=== PATIENT | female | born 1965 | race Caucasian/White ===

== ENCOUNTER → 2018-05-29 | Day surgery (SDC) | payer OTHER ==
[~2018-05-29] MED LIST: FENTANYL CITRATE/PF 100MCG/2 ML INJ ONE; GLUCAGON FOR INJ 1 MG VIAL ONE; HYOSCYAMINE SULFATE 0.5 MG/ML INJ ONE; LOESTRIN1 EAC1 PO; MIDAZOLAM HCL 2 MG/2 ML VIAL ONE; PROPOFOL IV EMULSION 10 MG/ML 50 ML VIAL ONE; WOMEN'S DAILY1 EAC2 PO
[2018-05-29 13:40] VITALS: BP 118/78
--- NOTE | 2018-05-29 14:49 | Operative Report ---
DATE OF PROCEDURE: May 29, 2018 REFERRING PHYSICIAN: Dr. Kodi Ramirez. PROCEDURE PERFORMED: Colonoscopy and polypectomy. INDICATIONS FOR COLONOSCOPY: Colorectal cancer screening. MEDICATION: Patient was done under MAC. Please see anesthesiologist's note. PROCEDURE: With the patient in the lateral decubitus position, flexible fiberoptic Olympus colonoscope was inserted into the rectum with ease and advanced all the way to the cecum. One polyp was hot biopsied from the cecum. The ascending, transverse and descending appeared to be within normal limits. One polyp was snared from the sigmoid colon. One polyp was hot biopsied from the rectum. The scope was then retroflexed into the distal rectum and small internal hemorrhoids were noted, none of which was actively bleeding. The scope was then straightened out. Was subsequently withdrawn. Patient tolerated the procedure well. IMPRESSION: 1. Cecal polyp, hot biopsied. 2. Sigmoid colon polyp, snared. 3. Rectal polyp, hot biopsied. 4. Internal hemorrhoids, none actively bleeding. PLAN: Follow up histology. Initiate high-fiber, low-fat diet. Initiate high-fiber supplement. Patient might benefit from a followup colonoscopy in 3 years. Job#: [id number] GH cc:KODI RAMIREZ M.D.
== END | disposition home or self-care (01) ==
LOC: ENDO 07:20
PROVIDERS: ATTEND Internal Medicine Gastroenterology
DX: Z12.11 Encounter for screening for malignant neoplasm of colon (principal); D12.8 Benign neoplasm of rectum; K63.5 Polyp of colon; K64.8 Other hemorrhoids; R03.0 Elevated blood-pressure reading, without diagnosis of hypertension; R00.0 Tachycardia, unspecified; Z88.6 Allergy status to analgesic agent; Z01.810 Encounter for preprocedural cardiovascular examination
CPT/HCPCS: 45384; 45385; 81025; 93005; J1610; J1980; J2250; 45378

== ENCOUNTER → 2022-01-17 | Day surgery (SDC) | payer OTHER ==
[~2022-01-17] MED LIST changes: +FLAXSEED OIL1000 MG PO; -GLUCAGON FOR INJ 1 MG VIAL ONE; +LIDOCAINE HCL 2% LOCAL INJ 5 ML SDV VIAL INJ ONE; +PROPOFOL IV EMULSION 10 MG/ML 20 ML VIAL ONE; -PROPOFOL IV EMULSION 10 MG/ML 50 ML VIAL ONE
[2022-01-17 09:00] VITALS: BP 117/81
== END | disposition home or self-care (01) ==
LOC: OR 06:48
PROVIDERS: ATTEND Internal Medicine Gastroenterology
DX: Z09 Encounter for follow-up examination after completed treatment for conditions other than malignant neoplasm (principal); Z86.010 Personal history of colon polyps; K64.8 Other hemorrhoids; Z71.3 Dietary counseling and surveillance; R03.0 Elevated blood-pressure reading, without diagnosis of hypertension; Z71.89 Other specified counseling; Z88.6 Allergy status to analgesic agent; Z01.810 Encounter for preprocedural cardiovascular examination; Z01.812 Encounter for preprocedural laboratory examination; Z20.822 Contact with and (suspected) exposure to COVID-19
CPT/HCPCS: 45378; 81025; 93005; J1980; J2001; J2250; J2704; J3010; U0002